=== PATIENT | female | born 1945 | race Caucasian/White ===

== ENCOUNTER 2019-01-16 11:49 | Outpatient (CLI) | payer BC ==
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
== END 2019-01-16 11:50 | disposition home or self-care (01) ==
LOC: BICRAD 11:49
PROVIDERS: ATTEND Family Medicine
DX: J93.9 Pneumothorax, unspecified (principal); M81.0 Age-related osteoporosis without current pathological fracture
CPT/HCPCS: 71046

== ENCOUNTER 2019-01-18 09:17 | Outpatient (CLI) | payer BC ==
--- NOTE | 2019-01-18 10:08 | BD ---
EXAM: DEXA bone density examination HISTORY: Osteoporosis screening COMPARISON: February 12, 2016 FINDINGS: L1--bone mineral density 0.772 g/sq cm; T score -2.0. Z score 0.1 L2--bone mineral density 0.843 g/sq cm; T score -1.7; Z score 0.7 L3--bone mineral density 0.866 g/sq cm; T score -2.0; Z score 0.5 L4--bone mineral density 0.898 g/sq cm; T score -1.5, Z score 1.1 Total L1-L4--bone mineral density 0.849 g/sq cm; T score -1.8, Z score 0.6 Left femoral neck--bone mineral density0.502; T score -3.1, Z score -1.1 Total proximal left femur--bone mineral density 0.687; T score -2.1, Z score -0.3 IMPRESSION: Based on the WHO criteria, the patient's bone mineral density is consideredosteoporotic. The patient is at high risk for fracture. The bone mineral density of the left femoral neck region is not appreciably changed from the comparison examination dated February 12, 2016 or the initial examina tion dated September 21, 2012.
== END 2019-01-18 09:18 | disposition home or self-care (01) ==
LOC: BICMAMMO 09:17
PROVIDERS: ATTEND Family Medicine
DX: M81.0 Age-related osteoporosis without current pathological fracture (principal); J93.9 Pneumothorax, unspecified; M85.88 Other specified disorders of bone density and structure, other site
CPT/HCPCS: 77080

== ENCOUNTER 2019-01-25 11:10 | Outpatient (CLI) | payer BC ==
[~2019-01-25 11:10] MED LIST: Iopamidol 370 76% 100 ML VIAL ONE
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
== END 2019-01-25 11:11 | disposition home or self-care (01) ==
LOC: BICCT 11:10
PROVIDERS: ATTEND Family Medicine
DX: R91.1 Solitary pulmonary nodule (principal)
CPT/HCPCS: 71260; 82565; Q9967

== ENCOUNTER 2020-06-17 13:21 | Outpatient (CLI) | payer BC ==
--- NOTE | 2020-06-17 14:01 | ULT ---
US Breast Limited Lt: 06/17/2020 12:00 AM CLINICAL INDICATION: Palpable breast mass In the 1:00 position of the left breast COMPARISON: None. TECHNIQUE: Multiplanar grayscale and color Doppler images were obtained of the breast. FINDINGS: Normal appearing parenchyma is seen. No suspicious mass is seen. No suspicious shadowing is seen. No cyst is identified. IMPRESSION: BI-RADS Category 1-negative.
--- NOTE | 2020-06-18 07:49 | MMO ---
Left Breast MAMMO Unilat Diag DDI LT+JAIMEE. CLINICAL HISTORY: Patient is 74 years old and is seen for diagnostic exam and lump or thickening in the upper-outer region of the left breast. The patient has no family history of breast cancer. The patient has no personal history of cancer. VIEWS: The views performed were: left craniocaudal with tomosynthesis; left mediolateral oblique with tomosynthesis; and left mediolateral with tomosynthesis. FILMS COMPARED: The present examination has been compared to prior imaging studies performed at [facility] on 02/12/2016, 03/23/2017, 01/22/2020 and 06/17/2020. This study has been interpreted with the assistance of computer-aided detection. MAMMOGRAM FINDINGS: The breast is heterogeneously dense, which could obscure a lesion on mammography. There are no suspicious masses, suspicious calcifications, or new areas of architectural distortion. IMPRESSION: THERE IS NO MAMMOGRAPHIC EVIDENCE OF MALIGNANCY. A ROUTINE FOLLOW-UP MAMMOGRAM IN 1 YEAR IS RECOMMENDED. THE RESULTS OF THIS EXAM WERE SENT TO THE PATIENT. ACR BI-RADS Category 1 - Negative MAMMOGRAPHY NOTE: 1. A negative mammogram report should not delay a biopsy if a dominant of clinically suspicious mass is present. 2. Approximately 10% to 15% of breast cancers are not detected by mammography. 3. Adenosis and dense breasts may obscure an underlying neoplasm. Reported by: PATRICA CORDON MD Electonically Signed: [id number]
== END 2020-06-17 13:22 | disposition home or self-care (01) ==
LOC: BICMAMMO 13:21
PROVIDERS: ATTEND Internal Medicine
DX: N63.21 Unspecified lump in the left breast, upper outer quadrant (principal)
CPT/HCPCS: G0279

== ENCOUNTER 2020-07-02 13:36 | Outpatient (CLI) | payer BC ==
--- NOTE | 2020-07-02 15:54 | BD ---
Exam: DEXA Bone Density 07/02/20 INDICATIONS: Postmenopausal screening. Lumbar Spine: BMD (g/cm2) T-SCORE L1 0.711 -2.5 L2 0.826 -1.8 L3 0.951 -1.2 L4 0.867 -1.8 L1-L4 0.843 -1.9 Total density 01/18/19: 0.849 Femoral Neck: 0.505 -3.1 Total Femur: 0.700 -2.0 Total density 01/18/19: 0.687 Impression: Bone mineral density of the lumbar spine and femoral neck both indicate osteoporosis. POS: AGW
== END 2020-07-02 13:37 | disposition home or self-care (01) ==
LOC: BICMAMMO 13:36
PROVIDERS: ATTEND Internal Medicine
DX: M81.0 Age-related osteoporosis without current pathological fracture (principal)
CPT/HCPCS: 77080

== ENCOUNTER 2021-01-15 10:51 | Outpatient (CLI) | payer BC | END 2021-01-15 10:52 | disposition home or self-care (01) | LOC: BICULT 10:51 | PROVIDERS: ATTEND Internal Medicine | DX: N18.30 Chronic kidney disease, stage 3 unspecified (principal); N13.39 Other hydronephrosis | CPT/HCPCS: 76770 ==

== ENCOUNTER 2021-01-27 10:44 | Outpatient (CLI) | payer BC | END 2021-01-27 10:45 | disposition home or self-care (01) | LOC: BICMAMMO 10:44 | PROVIDERS: ATTEND Internal Medicine | DX: Z12.31 Encounter for screening mammogram for malignant neoplasm of breast (principal) | CPT/HCPCS: 77063; 77067 ==

== ENCOUNTER 2021-02-15 13:14 | Outpatient (CLI) | payer BC ==
[2021-02-15 15:03] LABS: Hemoglobin 11.4 g/dL (12.0-15.5); Mean Corpuscular HGB CONC 32.4 g/dL (32.0-36.0); Mean Corpuscular Hemoglobin 28.2 pg (27.0-33.0); Mean Corpuscular Volume 87.1 fl (81.6-98.3); Mean Platelet Volume 9.7 fl (7.4-10.4); Platelet Count 329 10x3/uL (150-450); RBC Distribution Width 13.3 % (11.5-14.5); Red Blood Cell (RBC) Count 4.04 10x6/uL (3.90-5.03); White Blood Cell (WBC) Count 9.6 10x3/uL (3.5-10.5)
[2021-02-15 15:16] LABS: PTT 24.5 sec (22.0-33.0); Prothrombin Time 10.9 sec (9.5-12.1)
[2021-02-15 15:20] LABS: Anion Gap 18 mmol/L (10-20); BUN (Urea Nitrogen) 28 mg/dL (9.8-20.1); Calc. Creatinine Clearance 0 mL/min (70-130); Calcium 10.2 mg/dL (7.8-10.44); Carbon Dioxide 26 mmol/L (23-31); Chloride 100 mmol/L (98-107); Glucose 164 mg/dL (83-110); Potassium 4.4 mmol/L (3.5-5.1); Sodium 140 mmol/L (136-145)
[2021-02-15 15:25] LABS: Bilirubin Neg (Negative); Blood, Urine 50 (Negative); Clarity Clear (Clear); Glucose, Urine (Dipstick) Normal (Negative); Ketone, Urine Negative (Negative); Leukocyte 500 (Negative); Nitrite Negative (Negative); Protein, Urine (Dipstick) 15 mg/dl (Neg-Trace); Specific Gravity, Urine 1.005 (1.002-1.036); Urobilinogen Normal mg/dL (Less than 2)
[2021-02-15 15:38] LABS: Bacteria/HPF 1+ HPF (None Seen); RBC/HPF 0-3 HPF (0-3); Squamous Epithelial 0-3 HPF (0-3)
== END 2021-02-15 13:15 | disposition home or self-care (01) ==
LOC: LABBT 13:14
PROVIDERS: ATTEND Urology
DX: Z01.818 Encounter for other preprocedural examination (principal); N13.39 Other hydronephrosis; N39.41 Urge incontinence; R33.9 Retention of urine, unspecified; R39.198 Other difficulties with micturition; N39.0 Urinary tract infection, site not specified
CPT/HCPCS: 80048; 81001; 85027; 85610; 85730; 87077; 87086; 93005; 93010

== ENCOUNTER 2021-02-18 09:01 | Day surgery (SDC) | payer BC ==
[2021-02-17 10:47] VITALS: BMI 21.2
[2021-02-18] MEDS ORDERED: Levofloxacin 500 mg/D5W 100 ml Premix Bag ONE (10:27)
[2021-02-18] MEDS ORDERED: Iothalamate Meglumine 60% 50 ML VIAL FS ONE (10:31)
[2021-02-18] MEDS ORDERED: B & O ONE (10:31)
[2021-02-18] MEDS ORDERED: Ondansetron PF 4 MG/2 ML Vial ONE (10:48)
[2021-02-18] MEDS ORDERED: PROPOFOL 200 MG/20 ML VIAL ONE (10:48)
[2021-02-18] MEDS ORDERED: Dexamethasone 20 MG/5 ML VIAL ONE (10:48)
[2021-02-18] MEDS ORDERED: Lidocaine 1% PF 5 ML VIAL ONE (10:48)
[2021-02-18] MEDS ORDERED: Fentanyl 100 MCG/2 ML VIAL ONE (10:49)
== END 2021-02-18 13:48 | disposition home or self-care (01) ==
LOC: SDC 09:01
PROVIDERS: ATTEND Urology
PROC: 0TJB8ZZ Inspection of Bladder, Via Natural or Artificial Opening Endoscopic (ICD-10-PCS; principal; 2021-02-18)
DX: N13.70 Vesicoureteral-reflux, unspecified (principal); N13.30 Unspecified hydronephrosis; N32.3 Diverticulum of bladder; Z79.899 Other long term (current) drug therapy; Z88.5 Allergy status to narcotic agent
CPT/HCPCS: 74420; J1100; J1956; J2405; J2704; J3010; Q9961

== ENCOUNTER 2021-03-30 15:58 | Outpatient (CLI) | payer BC | END 2021-03-30 15:59 | disposition home or self-care (01) | LOC: BICRAD 15:58 | PROVIDERS: ATTEND Internal Medicine | DX: M54.2 Cervicalgia (principal); M47.812 Spondylosis without myelopathy or radiculopathy, cervical region | CPT/HCPCS: 72040 ==

== ENCOUNTER 2021-10-25 15:30 | Outpatient (CLI) | payer BC | END 2021-10-25 15:31 | disposition home or self-care (01) | LOC: BICRAD 15:30 | PROVIDERS: ATTEND Internal Medicine | DX: M25.552 Pain in left hip (principal); M53.3 Sacrococcygeal disorders, not elsewhere classified; M16.12 Unilateral primary osteoarthritis, left hip; M47.816 Spondylosis without myelopathy or radiculopathy, lumbar region; M47.818 Spondylosis without myelopathy or radiculopathy, sacral and sacrococcygeal region; M43.16 Spondylolisthesis, lumbar region | CPT/HCPCS: 72100 ==

== ENCOUNTER 2021-11-25 15:35 | Inpatient (IN) | payer BC, MEDICARE ==
[2021-11-25 16:18] LABS: #Basophils 0.1 thou/uL (0.0-0.2); #Eosinphils 0.1 thou/uL (0.0-0.7); #Monocytes 0.8 thou/uL (0.11-0.59); #Neutrophils 4.5 thou/uL (1.40-6.50); %Basophils 0.8 % (0.0-1.0); %Eosinophils 1.2 % (0.0-10.0); %Lymphocytes 26.4 % (21.0-51.0); %Monocytes 11.3 % (0.0-10.0); %Neutrophils 60.2 % (42.0-75.0); Hemoglobin 11.9 g/dL (12.0-16.0); Mean Corpuscular HGB CONC 32.8 g/dL (32.0-36.0); Mean Corpuscular Hemoglobin 30.1 pg (27.0-31.0); Mean Corpuscular Volume 91.6 fL (78.0-98.0); Mean Platelet Volume 6.1 fL (7.4-10.4); Platelet Count 313 thou/uL (130-400); RBC Distribution Width 12.2 % (11.5-14.5); Red Blood Cell (RBC) Count 3.94 mill/uL (4.20-5.40); White Blood Cell (WBC) Count 7.4 thou/uL (4.8-10.8)
[2021-11-25 16:43] LABS: ALT (SGPT) 20 U/L (8-55); AST (SGOT) 23 U/L (5-34); Alkaline Phosphatase 63 U/L (40-110); Anion Gap 12 mmol/L (10-20); BUN (Urea Nitrogen) 21 mg/dL (9.8-20.1); Bilirubin, Total 0.3 mg/dL (0.2-1.2); Calc. Creatinine Clearance 0 mL/min (70-130); Calcium 9.4 mg/dL (7.8-10.44); Carbon Dioxide 27 mmol/L (23-31); Chloride 102 mmol/L (98-107); Globulin 3.6 g/dL (2.4-3.5); Glucose 100 mg/dL (83-110); Potassium 4.1 mmol/L (3.5-5.1); Protein, Total 7.6 g/dL (5.8-8.1); Sodium 137 mmol/L (136-145)
[2021-11-25] MEDS ORDERED: Cefepime 2 GM VIAL ONE (18:22)
[2021-11-25 22:00] VITALS: BMI 20.9
[2021-11-25] MEDS ORDERED: Ondansetron ODT 4 MG TAB SL PRN (22:00)
[2021-11-25] MEDS ORDERED: Acetaminophen 325 MG TAB PO PRN (22:00)
[2021-11-25] MEDS ORDERED: Ondansetron PF 4 MG/2 ML Vial IVP PRN (22:00)
[2021-11-25] MEDS ORDERED: Senokot S 8.6-50 MG TAB PO PRN (22:11)
[2021-11-25] MEDS ORDERED: Bisacodyl 5 MG TAB PO PRN (22:11)
[2021-11-25] MEDS ORDERED: Sodium Chloride 0.9% 1,000 ML IV SCH (22:15)
[2021-11-25] MEDS ORDERED: Enoxaparin Sodium 30 MG/0.3 ML SYRINGE SC SCH (22:30)
[2021-11-25] MEDS ORDERED: hydrALAZINE 20 MG/ML VIAL SLOW IVP PRN (22:54)
[2021-11-26 05:15] LABS: #Eosinphils 0.1 thou/uL (0.0-0.7); #Lymphocytes 2.1 thou/uL (1.20-3.40); #Monocytes 0.9 thou/uL (0.11-0.59); %Basophils 0.4 % (0.0-1.0); %Eosinophils 2.2 % (0.0-10.0); %Neutrophils 48.4 % (42.0-75.0); Hemoglobin 10.6 g/dL (12.0-16.0); Mean Corpuscular Hemoglobin 30.2 pg (27.0-31.0); Mean Corpuscular Volume 91.3 fL (78.0-98.0); Mean Platelet Volume 6.3 fL (7.4-10.4); Platelet Count 260 thou/uL (130-400); Red Blood Cell (RBC) Count 3.51 mill/uL (4.20-5.40); White Blood Cell (WBC) Count 6.1 thou/uL (4.8-10.8)
[2021-11-26 05:35] LABS: ALT (SGPT) 14 U/L (8-55); AST (SGOT) 18 U/L (5-34); Albumin 3.3 g/dL (3.4-4.8); Alkaline Phosphatase 51 U/L (40-110); Anion Gap 10 mmol/L (10-20); BUN (Urea Nitrogen) 17 mg/dL (9.8-20.1); Bilirubin, Total 0.4 mg/dL (0.2-1.2); Calc. Creatinine Clearance 33 mL/min (70-130); Calcium 8.8 mg/dL (7.8-10.44); Carbon Dioxide 28 mmol/L (23-31); Chloride 105 mmol/L (98-107); Glucose 87 mg/dL (83-110); Potassium 4.1 mmol/L (3.5-5.1); Protein, Total 6.3 g/dL (5.8-8.1); Sodium 139 mmol/L (136-145)
[2021-11-26] MEDS ORDERED: Cefepime 1 GM in Sodium Chloride 0.9% 100 ML IVPB SCH (06:00)
[2021-11-26] MEDS ORDERED: Heparin 5,000 UNITS/ML VIAL SC SCH (09:00)
[2021-11-26] MEDS ORDERED: Pantoprazole 40 MG VIAL IVP SCH (09:00)
[2021-11-26] MEDS ORDERED: Non-Formulary Item 1 EACH (Desvenlafaxine Succinate [Pristiq] 50 MG Tab.Er.24h) PO SCH (10:51)
[2021-11-26] MEDS ORDERED: Aripiprazole 10 MG TAB PO SCH ×2 (10:51→11:05)
[2021-11-26 12:25] LABS: SARS-CoV-2 PCR by NAA Not Detected (NotDetected)
[2021-11-26] MEDS ORDERED: Loperamide HCl 2 MG CAP PO PRN (17:36)
[2021-11-26] MEDS: Cefepime 2 GM in Sodium Chloride 0.9% 100 ML IVPB SCH (18:36)
[2021-11-26] MEDS ORDERED: Vancomycin 1 GM in Premix Bag 1 BAG IVPB SCH (20:00)
[2021-11-26] MEDS ORDERED: Non-Formulary Item 1 EACH (Zolpidem Tartrate [Ambien Cr] 12.5 MG Tab.Mphase) PO SCH (21:00)
[2021-11-26] MEDS ORDERED: Vancomycin HCl 1 GM in Sodium Chloride 0.9% 250 ML 250 ML IVPB SCH (21:00)
[2021-11-26] MEDS ORDERED: Zolpidem Tartrate 5 MG TAB PO SCH (21:00)
[2021-11-26] MEDS ORDERED: Enoxaparin Sodium 30 MG/0.3 ML SYRINGE SC SCH (21:00)
[2021-11-26] MEDS ORDERED: traZODone HCl 50 MG TAB PO SCH (21:00)
[2021-11-26] MEDS ORDERED: Simvastatin 5 MG TAB PO SCH (21:00)
[2021-11-26] MEDS ORDERED: Pravastatin Sodium 20 MG TAB PO SCH (21:00)
[2021-11-26] MEDS ORDERED: Non-Formulary Item 1 EACH (Trazodone Hcl [Trazodone Hcl] 100 MG Tablet) PO SCH (21:00)
[2021-11-27] MEDS: Cefepime 2 GM in Sodium Chloride 0.9% 100 ML IVPB SCH (04:42)
[2021-11-27 05:19] LABS: Anion Gap 11 mmol/L (10-20); BUN (Urea Nitrogen) 16 mg/dL (9.8-20.1); Calc. Creatinine Clearance 32 mL/min (70-130); Calcium 8.5 mg/dL (7.8-10.44); Carbon Dioxide 25 mmol/L (23-31); Chloride 107 mmol/L (98-107); Glucose 92 mg/dL (83-110); Potassium 3.7 mmol/L (3.5-5.1); Sodium 139 mmol/L (136-145)
[2021-11-27 07:40] VITALS: BP 117/58; TEMP 98.4
[2021-11-27] MEDS: Venlafaxine HCl XR 75 MG CAP PO SCH ×2 (08:43→08:45)
[2021-11-27] MEDS ORDERED: Aripiprazole 10 MG TAB PO SCH (09:00)
[2021-11-27] MEDS ORDERED: Lidocaine 1% (PF) 30 ML VIAL ONE (16:44)
== END 2021-11-27 17:42 | disposition home or self-care (01) | DRG 603 ==
LOC: ERS 15:35 → MSONC 20:45
PROVIDERS: ADMIT Student in an Organized Health Care Education/Training Program; ATTEND Family Medicine
PROC: 0M943ZX Drainage of Left Elbow Bursa and Ligament, Percutaneous Approach, Diagnostic (ICD-10-PCS; principal; 2021-11-27)
DX: L03.114 Cellulitis of left upper limb (principal); N17.9 Acute kidney failure, unspecified; K52.1 Toxic gastroenteritis and colitis; N13.30 Unspecified hydronephrosis; F32.A Depression, unspecified; G47.00 Insomnia, unspecified; N18.30 Chronic kidney disease, stage 3 unspecified; T36.95XA Adverse effect of unspecified systemic antibiotic, initial encounter; Y92.239 Unspecified place in hospital as the place of occurrence of the external cause; E78.5 Hyperlipidemia, unspecified; M70.22 Olecranon bursitis, left elbow; I12.9 Hypertensive chronic kidney disease with stage 1 through stage 4 chronic kidney disease, or unspecified chronic kidney disease; Z20.822 Contact with and (suspected) exposure to COVID-19; Z88.5 Allergy status to narcotic agent; Z90.710 Acquired absence of both cervix and uterus; Z79.899 Other long term (current) drug therapy
CPT/HCPCS: 36415; 78315; 80048; 80053; 80202; 83605; 85025; 87040; 87070; 87205; 87324; 87449; 94760; 96365; 96375; A9503; J0692; J1644; J1650; J2001; J3370; J3490; J7050; U0003; U0005

== ENCOUNTER 2021-12-27 07:43 | Outpatient (CLI) | payer BC | END 2021-12-27 07:44 | disposition home or self-care (01) | LOC: NM 07:43 | PROVIDERS: ATTEND Internal Medicine Infectious Disease | DX: T84.59XD Infection and inflammatory reaction due to other internal joint prosthesis, subsequent encounter (principal); M70.32 Other bursitis of elbow, left elbow | CPT/HCPCS: 78802; A4641; A9521 ==

== ENCOUNTER 2022-02-07 09:16 | Outpatient (CLI) | payer BC | END 2022-02-07 09:17 | disposition home or self-care (01) | LOC: BICMAMMO 09:16 | PROVIDERS: ATTEND Internal Medicine | DX: Z12.31 Encounter for screening mammogram for malignant neoplasm of breast (principal); M81.0 Age-related osteoporosis without current pathological fracture; M85.88 Other specified disorders of bone density and structure, other site | CPT/HCPCS: 77063; 77067; 77080 ==

== ENCOUNTER 2023-03-02 12:20 | Outpatient (CLI) | payer BC | END 2023-03-02 12:21 | disposition home or self-care (01) | LOC: BICMAMMO 12:20 | PROVIDERS: ATTEND Internal Medicine | DX: Z12.31 Encounter for screening mammogram for malignant neoplasm of breast (principal) | CPT/HCPCS: 77063; 77067 ==

== ENCOUNTER 2023-07-14 13:46 | Outpatient (CLI) | payer BC | END 2023-07-14 13:47 | disposition home or self-care (01) | LOC: BICRAD 13:46 | PROVIDERS: ATTEND Family Medicine | DX: R07.9 Chest pain, unspecified (principal); J44.9 Chronic obstructive pulmonary disease, unspecified | CPT/HCPCS: 71046 ==